=== PATIENT | female | born 1995 | race Caucasian/White ===

== ENCOUNTER 2022-10-04 16:38 | Outpatient (CLI) | payer OTHER, SELFPAY | END 2022-10-04 16:39 | disposition home or self-care (01) | PROVIDERS: Visit Provider Student in an Organized Health Care Education/Training Program | DX: R35.0 Frequency of micturition (principal) | CPT/HCPCS: 87086; 87088 ==

== ENCOUNTER 2022-10-25 11:24 | Observation (INO) | payer OTHER, SELFPAY ==
[2022-10-25 11:42] VITALS: BP 138/97; PULSE 76
[2022-10-25 12:00] VITALS: BP 132/86; PULSE 79
[2022-10-25 12:01] LABS: Appearance Urine Clear (Clear); Bacteria Urine Rare /hpf; Bilirubin Urine Negative (Negative); Color Urine Yellow (Yellow); Glucose Urine UA Negative (Negative); Ketones Urine Negative (Negative); Leukocyte Esterase Ur 1+ LEU/UL (NEGATIVE); Nitrate Urine Negative (Negative); Protein Urine Trace mg/dL (Negative); Specific Grav Ur 1.018 (1.001-1.035); Squamous Epithelial Cell Urine Few /hpf (Few); Urobilinogen Urine 0.2 mg/dL (<2.0); pH Urine 6.5 (5.0-9.0)
[2022-10-25 12:13] LABS: Add Urine Microscopic? YES
[2022-10-25 12:30] VITALS: BP 136/93; PULSE 77
--- NOTE | 2022-10-26 14:45 | PM.OBTRLD ---
OB - Triage/Final Diagnosis Visit Information Date of evaluation: 10/25/22 Reason for evaluation: threatened labor Comments/Additional reasons for admission: I have assessed the risk for this patient, Nicolette Lawrence, and determined that she would benefit from observation care. Evaluation Laboratory results: Laboratory Tests 10/25/22 11:45 Urine Color Yellow Urine Appearance Clear Urine pH 6.5 Ur Specific [place] 1.018 Urine Protein Trace Urine Glucose (UA) Negative Urine Ketones Negative Ur Blood (Man) Non-hemolyzed trace Urine Nitrate Negative Urine Bilirubin Negative Urine Urobilinogen 0.2 Ur Leukocyte Esterase 1+ H Urine RBC 6-10 H Urine WBC 6-10 Ur Squamous Epith Cells Few Urine Bacteria Rare Urine Casts 3-5
== END 2022-10-25 12:42 | disposition home or self-care (01) ==
PROVIDERS: Admitting Provider Obstetrics & Gynecology; Visit Provider Student in an Organized Health Care Education/Training Program
DX: O47.03 False labor before 37 completed weeks of gestation, third trimester (principal); Z3A.33 33 weeks gestation of pregnancy
CPT/HCPCS: 81001; 87086; 87088; G0378; G0379

== ENCOUNTER 2022-10-31 11:39 | Outpatient (CLI) | payer OTHER, SELFPAY ==
[2022-10-31 12:14] LABS: Basophils Percent Auto 0.3 % (0.2-1.2); Eosinophils Absolute Auto 0.1 K/mm3 (0-0.3); Eosinophils Percent Auto 0.4 % (0-4.4); Hematocrit 34.9 % (37.0-47.0); Hemoglobin 11.4 g/dL (12.0-15.0); Immature Granulocyte Absolute 0.08 K/mm3 (0.00-0.031); Immature Granulocyte Percent A 0.6 % (0-0.5); Lymphocytes Absolute Auto 1.93 K/mm3 (0.9-3.2); Lymphocytes Percent Auto 14.1 % (18.3-44.2); Mean Corpuscular HGB Conc 32.7 g/dl (32-36); Mean Corpuscular Hemoglobin 28.6 pg (26-34); Mean Corpuscular Volume 87.7 fl (80-100); Mean Platelet Volume 9.6 fl (7.4-10.4); Monocytes Absolute Auto 0.7 K/mm3 (0.1-0.6); Monocytes Percent Auto 5.4 % (2.6-8.5); Neutrophils Absolute Auto 10.9 K/mm3 (1.3-6.7); Neutrophils Percent Auto 79.2 % (45.5-73.1); Platelet Count Result 373 k/mm3 (150-375); Red Blood Count 3.98 M/mm3 (4.2-5.4); Red Cell Distribution Width 13.2 % (11.5-14.5); White Blood Count 13.7 K/mm3 (4.5-10.0)
[2022-10-31 12:15] VITALS: BP 145/104; PULSE 84
[2022-10-31 12:17] LABS: Appearance Urine Clear (Clear); Bacteria Urine None Seen /hpf; Bilirubin Urine Negative (Negative); Blood Urine Negative (Negative); Color Urine Yellow (Yellow); Glucose Urine UA 1+ mg/dL (Negative); Ketones Urine Negative (Negative); Leukocyte Esterase Ur Trace LEU/UL (NEGATIVE); Nitrate Urine Negative (Negative); Non Pathogenic Casts 0-2; Protein Urine 1+ mg/dL (Negative); RBC Urine 0-2 /hpf (0-2); Specific Grav Ur 1.021 (1.001-1.035); Squamous Epithelial Cell Urine Occasional /hpf (Few); WBC Urine 0-5 /hpf (0-3); pH Urine 6.5 (5.0-9.0)
[2022-10-31 12:22] LABS: Creatinine Urine 138.9 mg/dL; Total Protein Urine Random 32 mg/dL; Ur Ttl Prot Creatinine Ratio 0.23 mg/mg (0-0.20)
[2022-10-31 12:28] LABS: Alanine Aminotransferase 15 U/L (6-35); Albumin Level 3.2 g/dL (3.5-5.1); Alkaline Phosphatase 98 U/L (38-126); Anion Gap 6 mmol/L (8-16); Aspartate Amino Transferase 17 U/L (14-36); Bilirubin,Total 0.3 mg/dL (0.2-1.3); Blood Urea Nitrogen 10 mg/dL (7-17); Calcium 8.4 mg/dL (8.4-10.2); Carbon Dioxide 22 mmol/L (22-30); Chloride 107 mmol/L (98-107); Estimated Glomerular Filt Rate > 60; Glucose 92 mg/dL (65-110); Potassium 3.6 mmol/L (3.4-5.0); Sodium 135 mmol/L (137-145)
[2022-10-31 12:31] VITALS: BP 141/98; PULSE 82
[2022-10-31 12:46] VITALS: BP 138/98; PULSE 83
[2022-10-31 12:58] LABS: Add Urine Microscopic? YES
[2022-10-31 13:01] VITALS: BP 144/92; PULSE 83
[2022-10-31 16:53] VITALS: BP 144/92; PULSE 83
== END 2022-10-31 13:15 | disposition home or self-care (01) ==
LOC: ANHOBOP 11:43 → ANHOBPP 11:47
PROVIDERS: Visit Provider Obstetrics & Gynecology
DX: O13.3 Gestational [pregnancy-induced] hypertension without significant proteinuria, third trimester (principal); Z3A.34 34 weeks gestation of pregnancy
CPT/HCPCS: 36415; 59025; 80053; 81001; 82570; 84156; 84550; 85025; 87086; 87088; 99199

== ENCOUNTER 2022-11-05 11:28 | Outpatient (CLI) | payer OTHER, SELFPAY ==
[2022-11-05 11:28] VITALS: BMI 38.7
[2022-11-05 12:04] LABS: Collection Time Urine 24 HOURS
[2022-11-05 12:08] LABS: Total Volume 24 Hour Urine 1200 ml
[2022-11-05 12:12] LABS: Creatinine Urine 84.1 mg/dL; Patient Weight 240 Lbs
[2022-11-05 12:13] LABS: Creatinine Clearance Urine 80.4 ml/min (75-125); Serum Creat 0.7
[2022-11-05 12:23] LABS: Total Protein Urine Random 24 mg/dL
[2022-11-05 12:37] LABS: Total Protein Urine 24 Hr 288 mg/24hr (28-141); Total Volume 24 Hour Urine 1200 ml
== END 2022-11-05 11:29 | disposition home or self-care (01) ==
LOC: ANHOBOP 11:34
PROVIDERS: Visit Provider Obstetrics & Gynecology
DX: Z34.90 Encounter for supervision of normal pregnancy, unspecified, unspecified trimester (principal); Z3A.00 Weeks of gestation of pregnancy not specified
CPT/HCPCS: 81050; 82575; 84156

== ENCOUNTER 2022-11-10 15:19 | Outpatient (CLI) | payer OTHER, SELFPAY ==
[2022-11-10] VITALS (8 sets, daily range): BP systolic 134–148; BP diastolic 88–100; PULSE 69–77; BMI 37.3
[2022-11-10 16:10] LABS: Basophils Percent Auto 0.3 % (0.2-1.2); Eosinophils Absolute Auto 0.1 K/mm3 (0-0.3); Eosinophils Percent Auto 0.5 % (0-4.4); Hematocrit 32.8 % (37.0-47.0); Hemoglobin 11.1 g/dL (12.0-15.0); Immature Granulocyte Absolute 0.06 K/mm3 (0.00-0.031); Immature Granulocyte Percent A 0.5 % (0-0.5); Lymphocytes Absolute Auto 2.22 K/mm3 (0.9-3.2); Lymphocytes Percent Auto 17.8 % (18.3-44.2); Mean Corpuscular HGB Conc 33.8 g/dl (32-36); Mean Corpuscular Hemoglobin 29.2 pg (26-34); Mean Corpuscular Volume 86.3 fl (80-100); Mean Platelet Volume 9.8 fl (7.4-10.4); Monocytes Absolute Auto 0.8 K/mm3 (0.1-0.6); Monocytes Percent Auto 6.1 % (2.6-8.5); Neutrophils Absolute Auto 9.4 K/mm3 (1.3-6.7); Neutrophils Percent Auto 74.8 % (45.5-73.1); Platelet Count Result 366 k/mm3 (150-375); Red Cell Distribution Width 13.1 % (11.5-14.5); White Blood Count 12.5 K/mm3 (4.5-10.0)
[2022-11-10 16:18] LABS: Alanine Aminotransferase 15 U/L (6-35); Albumin Level 3.4 g/dL (3.5-5.1); Alkaline Phosphatase 117 U/L (38-126); Anion Gap 6 mmol/L (8-16); Appearance Urine Cloudy (Clear); Aspartate Amino Transferase 18 U/L (14-36); Bacteria Urine Rare /hpf; Bilirubin Urine Negative (Negative); Bilirubin,Total 0.3 mg/dL (0.2-1.3); Blood Urea Nitrogen 9 mg/dL (7-17); Blood Urine Negative (Negative); Calcium 8.2 mg/dL (8.4-10.2); Carbon Dioxide 22 mmol/L (22-30); Chloride 105 mmol/L (98-107); Color Urine Yellow (Yellow); Estimated Glomerular Filt Rate > 60; Glucose 81 mg/dL (65-110); Glucose Urine UA Negative (Negative); Ketones Urine Negative (Negative); Leukocyte Esterase Ur Trace LEU/UL (Negative); Nitrate Urine Negative (Negative); Potassium 3.7 mmol/L (3.4-5.0); Protein Urine 1+ mg/dL (Negative); RBC Urine 0-2 /hpf (0-2); Sodium 133 mmol/L (137-145); Specific Grav Ur 1.023 (1.001-1.035); Squamous Epithelial Cell Urine Few /hpf (Few); Uric Acid 3.3 mg/dL (2.5-7.5); Urobilinogen Urine 0.2 mg/dL (<2.0)
[2022-11-10 16:34] LABS: Add Urine Microscopic? YES
[2022-11-10 16:59] LABS: Creatinine Urine 200.6 mg/dL; Total Protein Urine Random 50 mg/dL; Ur Ttl Prot Creatinine Ratio 0.25 mg/mg (0-0.20)
--- NOTE | 2022-11-10 17:07 | PC.NURSE ---
Dr. Venegas informed of lab results, reactive NST, BP's (initial was 148/100, but looks like it was taken before pt sat for 5 mins) and remainder 130-140's / 90's. Pt denies headache, visual disturbance, epigastric/RUQ pain, no edema, and normal reflexes. Pt to continue testing twice a week.
== END 2022-11-10 17:15 | disposition home or self-care (01) ==
LOC: ANHOBOP 15:25 → ANHLDR 15:26
PROVIDERS: Obstetrics & Gynecology; Visit Provider Obstetrics & Gynecology
DX: O13.9 Gestational [pregnancy-induced] hypertension without significant proteinuria, unspecified trimester (principal)
CPT/HCPCS: 36415; 59025; 80053; 81001; 82570; 84156; 84550; 85025; 87086; 87088; 99199

== ENCOUNTER 2022-11-17 09:17 | Outpatient (RCR) | payer OTHER, SELFPAY ==
[2022-11-04 16:40] LABS: Basophils Percent Auto 0.3 % (0.2-1.2); Eosinophils Percent Auto 0.3 % (0-4.4); Hematocrit 34.2 % (37.0-47.0); Hemoglobin 11.5 g/dL (12.0-15.0); Immature Granulocyte Absolute 0.05 K/mm3 (0.00-0.031); Immature Granulocyte Percent A 0.4 % (0-0.5); Lymphocytes Absolute Auto 1.92 K/mm3 (0.9-3.2); Mean Corpuscular HGB Conc 33.6 g/dl (32-36); Mean Corpuscular Hemoglobin 29.4 pg (26-34); Mean Corpuscular Volume 87.5 fl (80-100); Mean Platelet Volume 9.7 fl (7.4-10.4); Monocytes Absolute Auto 0.6 K/mm3 (0.1-0.6); Monocytes Percent Auto 4.6 % (2.6-8.5); Neutrophils Absolute Auto 11.1 K/mm3 (1.3-6.7); Neutrophils Percent Auto 80.4 % (45.5-73.1); Platelet Count Result 363 k/mm3 (150-375); Red Blood Count 3.91 M/mm3 (4.2-5.4); Red Cell Distribution Width 13.2 % (11.5-14.5); White Blood Count 13.7 K/mm3 (4.5-10.0)
[2022-11-04 16:51] LABS: Alanine Aminotransferase 16 U/L (6-35); Albumin Level 3.4 g/dL (3.5-5.1); Alkaline Phosphatase 107 U/L (38-126); Anion Gap 6 mmol/L (8-16); Aspartate Amino Transferase 18 U/L (14-36); Bilirubin,Total 0.4 mg/dL (0.2-1.3); Blood Urea Nitrogen 10 mg/dL (7-17); Calcium 8.3 mg/dL (8.4-10.2); Carbon Dioxide 24 mmol/L (22-30); Chloride 105 mmol/L (98-107); Estimated Glomerular Filt Rate > 60; Glucose 113 mg/dL (65-110); Potassium 3.7 mmol/L (3.4-5.0); Sodium 135 mmol/L (137-145); Uric Acid 3.6 mg/dL (2.5-7.5)
[2022-11-04 17:16] VITALS: BP 135/85; PULSE 75
[2022-11-06 13:30] VITALS: BP 136/89; PULSE 74
[2022-11-14 14:32] LABS: Basophils Percent Auto 0.2 % (0.2-1.2); Eosinophils Absolute Auto 0.1 K/mm3 (0-0.3); Eosinophils Percent Auto 0.3 % (0-4.4); Hematocrit 34.9 % (37.0-47.0); Hemoglobin 11.6 g/dL (12.0-15.0); Immature Granulocyte Absolute 0.07 K/mm3 (0.00-0.031); Immature Granulocyte Percent A 0.5 % (0-0.5); Lymphocytes Absolute Auto 1.88 K/mm3 (0.9-3.2); Lymphocytes Percent Auto 12.7 % (18.3-44.2); Mean Corpuscular HGB Conc 33.2 g/dl (32-36); Mean Corpuscular Volume 87.3 fl (80-100); Mean Platelet Volume 9.9 fl (7.4-10.4); Monocytes Absolute Auto 0.8 K/mm3 (0.1-0.6); Monocytes Percent Auto 5.6 % (2.6-8.5); Neutrophils Percent Auto 80.7 % (45.5-73.1); Platelet Count Result 376 k/mm3 (150-375); Red Cell Distribution Width 13.1 % (11.5-14.5); White Blood Count 14.9 K/mm3 (4.5-10.0)
[2022-11-14 14:36] LABS: Appearance Urine Cloudy (Clear); Bacteria Urine None Seen /hpf; Bilirubin Urine Negative (Negative); Blood Urine Negative (Negative); Color Urine Yellow (Yellow); Glucose Urine UA Negative (Negative); Ketones Urine Negative (Negative); Leukocyte Esterase Ur 1+ LEU/UL (Negative); Nitrate Urine Negative (Negative); Protein Urine 1+ mg/dL (Negative); RBC Urine 0-2 /hpf (0-2); Specific Grav Ur 1.018 (1.001-1.035); Squamous Epithelial Cell Urine Moderate /hpf (Few); pH Urine 6.5 (5.0-9.0)
[2022-11-14 14:44] LABS: Alanine Aminotransferase 15 U/L (6-35); Albumin Level 3.2 g/dL (3.5-5.1); Alkaline Phosphatase 116 U/L (38-126); Anion Gap 4 mmol/L (8-16); Aspartate Amino Transferase 21 U/L (14-36); Bilirubin,Total 0.3 mg/dL (0.2-1.3); Blood Urea Nitrogen 8 mg/dL (7-17); Calcium 8.5 mg/dL (8.4-10.2); Carbon Dioxide 24 mmol/L (22-30); Chloride 107 mmol/L (98-107); Estimated Glomerular Filt Rate > 60; Glucose 90 mg/dL (65-110); Potassium 3.5 mmol/L (3.4-5.0); Sodium 135 mmol/L (137-145); Uric Acid 3.5 mg/dL (2.5-7.5)
[2022-11-14 14:46] LABS: Creatinine Urine 205.2 mg/dL; Total Protein Urine Random 43 mg/dL; Ur Ttl Prot Creatinine Ratio 0.21 mg/mg (0-0.20)
[2022-11-14 14:48] LABS: Add Urine Microscopic? YES
[2022-11-14 15:00] VITALS: BP 137/91; PULSE 78
--- NOTE | ~2022-11-17 | US_ITS ---
EXAMINATION: US OB BPP wo non-stress DATE: 11/17/2022 11:02 INDICATION: Hypertension. Third trimester. TECHNIQUE: Real-time pelvic ultrasound was performed. COMPARISON: Ultrasound 11/06/2022 FINDINGS: There is a single living fetus in vertex presentation. The placenta is on the left. heart rate is 132 beats per minute (bpm). Biophysical profile performed by the technologist: breathing (30 sec sustained breathing in 30 minutes): 2 out of 2 movement (3 gross body movements in 30 minutes): 2 out of 2 tone (one episode of qfjudmy-tompqceji-jndxwgp limb movement): 2 out of 2 Amniotic fluid pocket (2 cm): 2 out of 2 Total score: 8 out of 8 IMPRESSION: 1. Single living fetus in vertex presentation. 2. Biophysical profile 8 out of 8. Reviewed, dictated and finalized at location A.
--- NOTE | ~2022-11-17 | US_ITS ---
EXAMINATION: US OB BPP wo non-stress DATE: 11/06/2022 13:27 INDICATION: Gestational hypertension. Third trimester. TECHNIQUE: Real-time pelvic ultrasound was performed. COMPARISON: Ultrasound 10/30/2022 FINDINGS: There is a single living fetus in vertex presentation. The placenta is on the left. heart rate is 121 beats per minute (bpm). Biophysical profile performed by the technologist: breathing (30 sec sustained breathing in 30 minutes): 2 out of 2 movement (3 gross body movements in 30 minutes): 2 out of 2 tone (one episode of sdmvevd-mfmhiqlhm-rziowmx limb movement): 2 out of 2 Amniotic fluid pocket (2 cm): 2 out of 2 Total score: 8 out of 8 IMPRESSION: 1. Single living fetus in vertex presentation. 2. Biophysical profile 8 out of 8. Reviewed, dictated and finalized at location A.
[2022-11-17 10:41] LABS: Basophils Percent Auto 0.2 % (0.2-1.2); Eosinophils Percent Auto 0.3 % (0-4.4); Hematocrit 36.2 % (37.0-47.0); Immature Granulocyte Absolute 0.06 K/mm3 (0.00-0.031); Immature Granulocyte Percent A 0.5 % (0-0.5); Lymphocytes Absolute Auto 1.68 K/mm3 (0.9-3.2); Lymphocytes Percent Auto 13.5 % (18.3-44.2); Mean Corpuscular HGB Conc 33.1 g/dl (32-36); Mean Corpuscular Hemoglobin 29.3 pg (26-34); Mean Corpuscular Volume 88.3 fl (80-100); Mean Platelet Volume 9.8 fl (7.4-10.4); Monocytes Absolute Auto 0.5 K/mm3 (0.1-0.6); Neutrophils Absolute Auto 10.2 K/mm3 (1.3-6.7); Neutrophils Percent Auto 81.5 % (45.5-73.1); Platelet Count Result 364 k/mm3 (150-375); Red Cell Distribution Width 13.3 % (11.5-14.5); White Blood Count 12.5 K/mm3 (4.5-10.0)
[2022-11-17 10:50] LABS: Creatinine Urine 178.8 mg/dL; Total Protein Urine Random 27 mg/dL; Ur Ttl Prot Creatinine Ratio 0.15 mg/mg (0-0.20)
[2022-11-17 10:52] LABS: Appearance Urine Clear (Clear); Bacteria Urine None Seen /hpf; Bilirubin Urine Negative (Negative); Blood Urine Negative (Negative); Color Urine Yellow (Yellow); Glucose Urine UA Trace mg/dL (Negative); Ketones Urine Negative (Negative); Leukocyte Esterase Ur Trace LEU/UL (NEGATIVE); Nitrate Urine Negative (Negative); Non Pathogenic Casts 0-2; Protein Urine 1+ mg/dL (Negative); RBC Urine 0-2 /hpf (0-2); Specific Grav Ur 1.019 (1.001-1.035); Squamous Epithelial Cell Urine Few /hpf (Few); WBC Urine 0-5 /hpf (0-3); pH Urine 6.5 (5.0-9.0)
[2022-11-17 11:11] LABS: Alanine Aminotransferase 18 U/L (6-35); Albumin Level 3.2 g/dL (3.5-5.1); Alkaline Phosphatase 122 U/L (38-126); Anion Gap 6 mmol/L (8-16); Aspartate Amino Transferase 19 U/L (14-36); Bilirubin,Total 0.3 mg/dL (0.2-1.3); Blood Urea Nitrogen 9 mg/dL (7-17); Calcium 8.1 mg/dL (8.4-10.2); Carbon Dioxide 21 mmol/L (22-30); Chloride 108 mmol/L (98-107); Estimated Glomerular Filt Rate > 60; Glucose 118 mg/dL (65-110); Potassium 3.8 mmol/L (3.4-5.0); Sodium 135 mmol/L (137-145); Uric Acid 3.7 mg/dL (2.5-7.5)
[2022-11-17 11:31] LABS: Add Urine Microscopic? YES
[2022-11-17 11:40] VITALS: BP 148/108; PULSE 112
== END 2023-01-29 12:51 | disposition home or self-care (01) ==
LOC: ANHOBOP 09:17
PROVIDERS: Visit Provider Obstetrics & Gynecology
DX: O26.893 Other specified pregnancy related conditions, third trimester (principal); R03.0 Elevated blood-pressure reading, without diagnosis of hypertension; Z3A.34 34 weeks gestation of pregnancy; Z3A.36 36 weeks gestation of pregnancy
CPT/HCPCS: 36415; 59025; 76819; 80053; 81001; 81050; 82570; 82575; 84156; 84550; 85025; 87086; 87088

== ENCOUNTER 2022-11-19 15:45 | Inpatient (IN) | payer OTHER, SELFPAY ==
[2022-11-19] VITALS (27 sets, daily range): BP systolic 137–155; BP diastolic 83–110; PULSE 72–88; TEMP 36.3–36.8; BMI 37.3
--- NOTE | 2022-11-19 16:24 | LDADM ---
This patient, Nicolette Castillo, was admitted to Labor/Delivery/Recovery 104 on 11/19/22 at 15:45. Plans for labor, pain management and were discussed with patient. Patient/family oriented to hospital policies and general routines including ID bracelet, bed and alarms, visiting hours, pain management, procedures, bathroom and other care routines, personal items, smoking policy, room service/diet and guest tray routines, security routines, and visiting hours. Patient/Family are encouraged to report perceived risks to care and to ask questions if they do not understand what they are told or what they should do. See OBIX for further documentation.
--- NOTE | 2022-11-19 16:48 | PM.IMHP ---
H&P: HPI History of Present Illness Date/Time: 11/19/22 16:48 Chief Complaint: induction of labor Narrative: Nicolette is a 27yo @ 36.5wks who presents for IOL. She has been monitored closely due to GHTN and has continued to have worsening blood pressures and began noticing changes in her vision and headaches. She had pre-eclampsia with her first as well and has been taking aspirin. She reports good movement. Irregular ctx. NO VB or LOF. She has had regular care. She no longer desires future fertility and [place] signed [place] forms on 10/16/22. She is GBS positive. Review of Systems Constitutional: Constitutional: Denies chills, Denies fever(s) and Reports headache(s) Eyes: Eyes: Reports change in vision Cardiovascular: Cardiovascular: Denies chest pain Respiratory: Respiratory: Denies cough and Denies dyspnea Gastrointestinal: Gastrointestinal: Denies nausea and Denies vomiting Genitourinary: Genitourinary: Denies abnormal vaginal bleeding [facility] Past Medical History Medical History Amenorrhea Blood glucose abnormal Gestational hypertension Suppression of menses Surgical History Surgical History History of appendectomy (06/26/13) Family History Family History Mother Kidney disease Grandparent Leukemia paternal grandmother Social History Social History Smoking status: Never smoker Alcohol intake: former Alcohol use details: socially Substance use: never Substance use type: does not use Lack of Transportation: No Lack of Food: Never True Current Housing: I Have Housing Concerned About Future Housing: No Difficulty Paying Gas/Electric Bills: No Difficulty Paying for Meds: No Currently Unemployed: No Education: Don't Know Difficulty w/ Childcare or Family Care: No Living arrangements: other Additional living arrangements comments: Occupation/Education: occupation 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 Gender identity (if verbalized by the patient): Female Sexual Orientation (if Verbalized by the Patient): Straight or Heterosexual Spiritual care concerns: No Meds Home Medications and Allergies Home Medications Medication Instructions Recorded Confirmed Type aspirin 81 mg tablet,delayed 81 mg PO DAILY 09/04/22 11/14/22 History release (Adult Low Dose Aspirin) ondansetron HCl 4 mg tablet 4 mg PO Q6H PRN nausea and 10/30/22 11/14/22 Rx vomiting #30 tabs sertraline 50 mg tablet 50 mg PO DAILY #30 tabs 10/30/22 11/14/22 Rx Allergies Allergy/AdvReac Type Severity Reaction Status Date / Time No Known Allergies Allergy Verified 11/14/22 15:50 Vital Signs Vital Signs - 24 hr 11/19/22 16:08 11/19/22 16:16 11/19/22 16:31 Pulse Rate 79 84 82 Blood Pressure 139/91 H 137/87 140/92 H Oxygen Delivery 11/19/22 16:22 Pulse Rate Blood Pressure Oxygen Delivery Room Air Exam Const: General: cooperative, comfortable, no acute distress and obese Resp: Effort & Inspection: normal respiratory effort Cardio: Rate: regular rate GI: GI Palp: No abdominal tenderness : Other: FHT's: 130's/ mod macey/ + accels/ no decels- cat 1 TOCO: irregular ctx's Cervix: 2/75/-2 Membranes: intact Presentation: cephalic Skin: General skin exam: normal color Neuro: General: patient oriented x3 Extrem: General: normal to inspection Psych: Appearance: grossly normal Affect: normal affect Attitude: cooperative Assessment and Plan Assessment and plan (1) Encounter for induction of labor: Code(s): Z34.90 - Encounter for supervision of normal , unspecified, unspecified trimester Status: Acute (2) Pre-eclampsia: Thomas
--- NOTE | 2022-11-19 17:08 | WPDHPUPDATE1 ---
History and Physical Update Update Date/Time: 11/19/22 17:08 History and Physical has been reviewed, including an updated exam of the patient. There are NO changes in the patient's condition. Risks, benefits, and alternatives have been discussed and questions answered. Patient agrees to proceed with procedure.
[2022-11-19 17:14] LABS: Basophils Percent Auto 0.3 % (0.2-1.2); Eosinophils Percent Auto 0.3 % (0-4.4); Hematocrit 37.5 % (37.0-47.0); Hemoglobin 12.4 g/dL (12.0-15.0); Immature Granulocyte Absolute 0.06 K/mm3 (0.00-0.031); Immature Granulocyte Percent A 0.4 % (0-0.5); Lymphocytes Absolute Auto 2.23 K/mm3 (0.9-3.2); Lymphocytes Percent Auto 14.6 % (18.3-44.2); Mean Corpuscular HGB Conc 33.1 g/dl (32-36); Mean Corpuscular Hemoglobin 29.3 pg (26-34); Mean Corpuscular Volume 88.7 fl (80-100); Mean Platelet Volume 9.9 fl (7.4-10.4); Monocytes Absolute Auto 0.8 K/mm3 (0.1-0.6); Monocytes Percent Auto 5.3 % (2.6-8.5); Neutrophils Absolute Auto 12.1 K/mm3 (1.3-6.7); Neutrophils Percent Auto 79.1 % (45.5-73.1); Platelet Count Result 375 k/mm3 (150-375); Red Blood Count 4.23 M/mm3 (4.2-5.4); Red Cell Distribution Width 13.3 % (11.5-14.5); White Blood Count 15.3 K/mm3 (4.5-10.0)
[2022-11-19] MEDS: OXYTOCIN 30 UNITS/NS 500 ML 30 UNITS/500 ML BAG IV CONT (17:22)
[2022-11-19] MEDS: BETAMETHASONE SOD PHOS/ACETATE 30 MG/5 ML VIAL 12 MG IM (17:23)
[2022-11-19] MEDS: AMPICILLIN 2 GM/NS 100 ML 2 GM/100 ML BAG IVPB (17:23)
[2022-11-19] MEDS: LACTATED RINGERS 1,000 ML 125 ML IV CONT ×2 (17:23→21:30)
--- NOTE | 2022-11-19 17:33 | PC.NURSE ---
9406: Dr. Bañuelos phoned in for an update. RN reported maternal and status. Orders to start Low dose Pitocin, antibiotics, and to give 2 ml of Betamethasone IM, one dose now and the other in 12 hours.
--- NOTE | 2022-11-19 17:35 | WPDANESEPP ---
Anes - Eval Pre Procedure Procedure: labor epidural Date/Time: 11/19/22 17:35 Pre Op Diagnosis: IOL Patient Data Age: 27 Gender: F Height: 1.7 m Weight: 108 kg Last Vital Signs Temp 36.3 C L 11/19/22 16:31 Pulse 79 11/19/22 17:31 BP 147/98 H 11/19/22 17:31 O2 Del Method Room Air 11/19/22 16:22 Allergies Allergy/AdvReac Type Severity Reaction Status Date / Time No Known Allergies Allergy Verified 11/14/22 15:50 Home Medications Medication Instructions Recorded Confirmed Type aspirin 81 mg tablet,delayed 81 mg PO DAILY 09/04/22 11/14/22 History release (Adult Low Dose Aspirin) ondansetron HCl 4 mg tablet 4 mg PO Q6H PRN nausea and 10/30/22 11/14/22 Rx vomiting #30 tabs sertraline 50 mg tablet 50 mg PO DAILY #30 tabs 10/30/22 11/14/22 Rx Laboratory Tests 11/19/22 16:06 WBC 15.3 H K/mm3 (4.5-10.0) RBC 4.23 M/mm3 (4.2-5.4) Hgb 12.4 g/dL (12.0-15.0) Hct 37.5 % (37.0-47.0) MCV 88.7 fl (80-100) MCH 29.3 pg (26-34) MCHC 33.1 g/dl (32-36) RDW 13.3 % (11.5-14.5) Plt Count 375 k/mm3 (150-375) MPV 9.9 fl (7.4-10.4) Immature Gran % (Auto) 0.4 % (0-0.5) Neut % (Auto) 79.1 H % (45.5-73.1) Lymph % (Auto) 14.6 L % (18.3-44.2) [place] % (Auto) 5.3 % (2.6-8.5) Eos % (Auto) 0.3 % (0-4.4) Baso % (Auto) 0.3 % (0.2-1.2) Lymph # (Auto) 2.23 K/mm3 (0.9-3.2) [place] # (Auto) 0.8 H K/mm3 (0.1-0.6) Eos # (Auto) 0.0 K/mm3 (0-0.3) Baso # (Auto) 0.0 K/mm3 (0.0-0.1) Abs Immat Gran (auto) 0.06 H K/mm3 (0.00-0.031) Absolute Neuts (auto) 12.1 H K/mm3 (1.3-6.7) Absolute Nucleated RBC 0.0 K/mm3 (0.0-0.012) Nucleated RBC % 0.0 % (0.0-0.2) RPR Pending Patient hx anesthesia problems: none Family hx anesthesia problems: none Results Review: All pre-operative results and documents have been reviewed as part of the pre-operative evaluation. [facility] Past Medical History Medical History Amenorrhea Blood glucose abnormal Gestational hypertension Suppression of menses Surgical History Surgical History History of appendectomy (06/26/13) Family History Family History Mother Kidney disease Grandparent Leukemia paternal grandmother Social History Social History Smoking status: Never smoker Alcohol intake: former Alcohol use details: socially Substance use: never Substance use type: does not use Lack of Transportation: No Lack of Food: Never True Current Housing: I Have Housing Concerned About Future Housing: No Difficulty Paying Gas/Electric Bills: No Difficulty Paying for Meds: No Currently Unemployed: No Education: Don't Know Difficulty w/ Childcare or Family Care: No Living arrangements: other Additional living arrangements comments: Occupation/Education: occupation Additional occupation/education comments: clerk cashier Gender identity (if verbalized by the patient): Female Sexual Orientation (if Verbalized by the Patient): Straight or Heterosexual Spiritual care concerns: No Exam Day of Procedure 11/19/22 17:35 Patient weight: obese Heart: regular rate and rhythm Lungs: clear to auscultation Airway: Mallampati scale Neurological: alert and oriented
[2022-11-19] MEDS: AMPICILLIN 1 GM/NS 50 ML 1 GM/50 ML BAG IVPB (21:31)
[2022-11-20] VITALS (233 sets, daily range): BP systolic 112–168; BP diastolic 71–116; PULSE 70–153; RESP 16–18; TEMP 36.2–36.8; O2SAT 88–100
[2022-11-20] MEDS: AMPICILLIN 1 GM/NS 50 ML 1 GM/50 ML BAG IVPB ×3 (01:28→09:21)
[2022-11-20] MEDS: BETAMETHASONE SOD PHOS/ACETATE 30 MG/5 ML VIAL 12 MG IM (05:14)
--- NOTE | 2022-11-20 07:14 | PM.OBPNLAB ---
Pain Control Date/time seen: 11/20/22 07:14 Pain control: epidural Pelvic Exam Dilation (cm): 4 Effacement (%): 75 station: -2 Amniotic membrane status: Ruptured (AROM, clear 0715) Contractions Monitor mode: Internal Contraction frequency: 2 Status status: Category l Assessment and Plan Pitocin rate (mU/min): 18 Plan: continuous present management Comments: - Continue pitocin augmentation - GBS positive; on ampicillin - IUPC placed this exam to better monitor contractions - BPs in moderate range; asympatomatic
[2022-11-20] MEDS: LACTATED RINGERS 1,000 ML 125 ML IV CONT (07:38)
[2022-11-20] MEDS: SODIUM CHLORIDE 0.9% IV 300 ML 600 ML I-UTERINE (09:30)
[2022-11-20] MEDS: ONDANSETRON INJ 4 MG/2 ML VIAL IV PUSH (10:08)
--- NOTE | 2022-11-20 11:48 | P.PCNOB_ITS ---
OB - Delivery Note Procedure Delivery date: 11/20/22 Events: Preeclampsia w/o severe features Induction method: Per Pitocin Protocol Delivery augmentation: Rupture of Membranes Delivery monitor: External FHT and Internal Uterine Route of delivery: Laceration Description: None Specimen: Yes (placenta) Quantitative Blood Loss (ml): 200 Anesthesia type: Epidural Disposition: Floor Baby Date of : 11/20/22 Time of : 11:33 Weeks of gestation at delivery: 36 (.6) gender: Male Weight (pounds): 6 Weight (ounces): 2 presentation: vertex position: Left Occiput Anterior Placenta delivery description: Expressed Cord Vessel Description: 3 Vessels and Delayed Cord Clamping score one minute: 8 score five minutes: 9 Narrative: Nicolette rapidly progressed to complete dilation. She pushed once and delivered the head over intact perineum. No nuchal cord was palpated. The shoulders and body were easily delivered without complications. The infant was immediately placed skin to skin and had spontaneous cry. Delayed cord clamping was performed. The umbilical cord was doubly clamped and cut. A segment cord was collected for gas. The remaining cord blood was collected for typing. With Pitocin running and gentle downward traction on the cord, the andrew enta delivered without complications. Bimanual massage revealed good tone with minimal bleeding. She was examined and no lacerations were noted. Sponge, lap, instrument, and needle counts were correct at the end of the procedure. Mom and baby were left bonding in the birthing suite in stable condition. [facility] Delivery Billing Delivery Delivery: Delivery Charge
[2022-11-20] MEDS: OXYTOCIN 30 UNITS/NS 500 ML 30 UNITS/500 ML BAG 125 UNITS IV CONT (11:52)
[2022-11-20 13:15] LABS: Rapid Plasma Reagin Non-Reactive (NonReactive)
[2022-11-20] MEDS: BENZOCAINE 20% AER SPR (*SP) 56 GM CAN 1 SPRAY TOPICAL (13:42)
[2022-11-20] MEDS: WITCH HAZEL 40 PADS 1 PAD TOPICAL (13:42)
--- NOTE | 2022-11-20 14:18 | OBPPTRN ---
Patient transferred to post room # 284 via wheelchair. Support person present. Oriented to unit, room, information board, rooming in, admission packet and security measures. Patient verbalizes understanding.
[2022-11-21 02:00] VITALS: BP 146/97; PULSE 67; RESP 16; TEMP 36.4
[2022-11-21] MEDS: IBUPROFEN 600 MG TABLET PO ×3 (02:00→21:21)
[2022-11-21 06:20] LABS: Hematocrit 36.2 % (37.0-47.0); Hemoglobin 11.7 g/dL (12.0-15.0)
--- NOTE | 2022-11-21 07:18 | PM.OBPNVD ---
OB - PN: Subj Subjective Date/time seen: 11/21/22 07:18 Narrative: PPD#1 Nicolette reports doing well today. Her bleeding is transformation lead. Her pain is controlled. She is tolerating regular diet, voiding, passing gas, and ambulating without issues. She is bottle feeding. She would like her son circumcised. No symptoms of PEC but her BP has been elevated all night. OB - PN: Obj Data Labs 11/21/22 02:04 Labs: Laboratory Results - last 24 hr 11/19/22 11/21/22 16:06 02:04 Hgb 11.7 L Hct 36.2 L RPR Non-reactive OB - PN A/P Assessment and Plan (1) Normal vaginal delivery of second : Code(s): O80 - Encounter for full-term uncomplicated delivery Status: Acute (2) Pre-eclampsia: Qualifiers: Trimester: third trimester Qualified Code(s): O14.93 - Unspecified pre-eclampsia, third trimester Code(s): O14.90 - Unspecified pre-eclampsia, unspecified trimester Status: Acute Plan day: 1 Plan: routine care Comments: - will start labetalol 100mg BID; possible d/c home tomorrow if BPs improved Time Spent With Patient Time: Total time spent is greater than 50% in coordination of care (as documented) at patient's floor/unit and/or counseling patient: Review of Systems Constitutional: Constitutional: Denies chills, Denies fever(s) and Denies headache(s) Eyes: Eyes: Denies change in vision ENT: Denies dizziness and Denies headache(s) Cardiovascular: Cardiovascular: Denies chest pain, Denies palpitations and Denies dyspnea Respiratory: Respiratory: Denies cough and Denies dyspnea Gastrointestinal: Gastrointestinal: Denies nausea and Denies vomiting Neurologic: Denies dizziness and Denies headache(s) Endocrine: Endocrine: Denies palpitations Exam Const: General: cooperative, comfortable, no acute distress and obese Orientation/consciousness: patient oriented x3 Resp: Effort & Inspection: normal respiratory effort Auscultation: clear to auscultation bilaterally Cardio: Rate: regular rate GI: Inspection: non-distended GI Palp: No abdominal tenderness and Yes Soft to palpation Auscultation: normal bowel sounds : Other: fundus firm Skin: General skin exam: normal color Neuro: General: patient oriented x3 Extrem: General: normal to inspection Psych: Appearance: grossly normal Affect: normal affect Attitude: cooperative
[2022-11-21 07:25] VITALS: BP 137/99; PULSE 71; RESP 18; TEMP 36.5; O2SAT 98
--- NOTE | 2022-11-21 08:00 | WPDANLDPN2 ---
Anes-Prog Note L&D Date/Time: 11/21/22 08:00 Neuro status: Neuro function grossly intact. Vital Signs: Last Vital Signs Temp 36.4 C 11/21/22 02:00 Pulse 67 11/21/22 02:00 Resp 16 11/21/22 02:00 BP 146/97 H 11/21/22 02:00 Pulse Ox 99 11/20/22 13:41 O2 Del Method Room Air 11/19/22 16:22 Pain score (VAS): 0 I/O: Intake & Output 11/20/22 11/21/22 11/21/22 23:59 07:59 15:59 Intake Total 500 Balance 500 Patient feedback: Patient satisfied with anesthetic care.
[2022-11-21 09:13] VITALS: PULSE 68
[2022-11-21] MEDS: SERTRALINE HCL 50 MG TABLET PO (09:13)
[2022-11-21] MEDS: LABETALOL HCL 100 MG TABLET PO ×2 (09:13→21:17)
[2022-11-21] MEDS: TETANUS,DIPHTHERIA,AC PERTUSSIS ADULT (0.5 ML) BOOSTRIX IM (09:14)
[2022-11-21 12:58] VITALS: BP 128/83; PULSE 65; RESP 16; TEMP 37.3; O2SAT 99
[2022-11-21 19:10] VITALS: BP 130/86; PULSE 73; RESP 16; TEMP 36.8
[2022-11-22 04:50] VITALS: BP 130/93; PULSE 75; RESP 16; TEMP 36.7
--- NOTE | 2022-11-22 07:18 | PM.OBDSVD ---
DS: Admitting Diagnosis Discharge Date 11/22/22 Admitting Diagnosis pre-eclampsia induction of labor DS: Discharge Diagnosis Discharge Diagnosis (1) Normal vaginal delivery of second : Code(s): O80 - Encounter for full-term uncomplicated delivery Status: Acute (2) Pre-eclampsia: Qualifiers: Trimester: third trimester Qualified Code(s): O14.93 - Unspecified pre-eclampsia, third trimester Code(s): O14.90 - Unspecified pre-eclampsia, unspecified trimester Status: Acute OB - DS: Summary OB Procedures : NST, PIH Mgmt and Ultrasound OB Procedures Intrapartum: Spontaneous Vag Delivery OB Procedures: : None Peripartum Data Infant Delivery Method: Natural Vaginal Laceration Description: None complications: none 1: Gender: Male Disposition of : home Status at Discharge Functional status at discharge: independent ambulation Overall status at discharge: patient is back to baseline Time Spent with Patient Time attestation: Total time spent providing and/or coordinating discharge services: Time spent: Less than 30 minutes Exam Const: General: cooperative, comfortable, no acute distress and obese Orientation/consciousness: patient oriented x3 Resp: Effort & Inspection: normal respiratory effort Auscultation: clear to auscultation bilaterally Cardio: Rate: regular rate GI: Inspection: non-distended GI Palp: No abdominal tenderness and Yes Soft to palpation Auscultation: normal bowel sounds : Other: fundus firm Skin: General skin exam: normal color Neuro: General: patient oriented x3 Extrem: General: normal to inspection Psych: Appearance: grossly normal Affect: normal affect Attitude: cooperative DS: Data Data Completed and Pending Pending studies at discharge: Pending at discharge 11/20/22 12:23 Surgical [PTH] Routine Discharge Plan Discharge Attending physician on discharge: Katie Bañuelos Discharging Clinician: Katie Bañuelos Anticipated Discharge Date/Time: 11/22/22 15:00 Patient Disposition: Home, Self-Care Activity: may shower and pelvic rest Diet: regular Patient Instructions: Antibiotic Form Stand Alone Forms: General Discharge Information Follow-up/Referrals: Katie Bañuelos MD [Physician] - 1 Week (1 week for BP check 4 weeks for visit) Discharge Medications: New acetaminophen [Mapap (acetaminophen)] 325 mg Tablet 650 mg PO Q6H PRN (Reason: Mild Pain (1-3) Or Headache) Qty: 60 0RF polysaccharide iron complex 150 mg iron Capsule 150 mg PO DAILY Qty: 60 0RF docusate sodium 100 mg Capsule 100 mg PO BID PRN (Reason: Constipation) Qty: 60 0RF ibuprofen 600 mg Tablet 600 mg PO Q6H PRN (Reason: Cramping) Qty: 40 0RF labetalol 100 mg Tablet 100 mg PO Q12HR Qty: 90 0RF Continued sertraline 50 mg tablet 50 mg PO DAILY Qty: 30 0RF Discontinued aspirin [Adult Low Dose Aspirin] 81 mg tablet,delayed release (DR/EC) 81 mg PO DAILY ondansetron HCl 4 mg tablet 4 mg PO Q6H PRN (Reason: nausea and vomiting) Qty: 30 1RF Date of admission: 11/19/22 15:45 Primary Care Provider: PHYSICIAN,LAW PROFESSOR Admitting Provider: Katie Bañuelos Attending physician on admission: Katie Bañuelos Condition: Stable
[2022-11-22 08:10] VITALS: BP 142/94; PULSE 63; RESP 16; TEMP 37; O2SAT 100
[2022-11-22 08:43] VITALS: PULSE 72
[2022-11-22] MEDS: LABETALOL HCL 100 MG TABLET PO (08:43)
[2022-11-22] MEDS: IBUPROFEN 600 MG TABLET PO (08:43)
[2022-11-22] MEDS: SERTRALINE HCL 50 MG TABLET PO (08:43)
== END 2022-11-22 10:50 | disposition home or self-care (01) | DRG 560 ==
LOC: ANHLDR 15:54 → ANHOB2 11-20 14:20
PROVIDERS: Admitting Provider Obstetrics & Gynecology; Visit Provider Obstetrics & Gynecology
DX: O14.04 Mild to moderate pre-eclampsia, complicating childbirth (principal); O13.4 Gestational [pregnancy-induced] hypertension without significant proteinuria, complicating childbirth; O99.824 Streptococcus B carrier state complicating childbirth; Z3A.36 36 weeks gestation of pregnancy; Z37.0 Single live birth; Z90.49 Acquired absence of other specified parts of digestive tract
CPT/HCPCS: 36415; 85014; 85018; 85025; 86592; 86850; 86900; 86901; 88307; 90715; A9270; J0290; J0702; J2405; J2590; J2795; J7030; J7120

== ENCOUNTER 2023-01-18 11:49 | Outpatient (CLI) | payer OTHER, SELFPAY ==
--- NOTE | 2023-01-18 11:57 | ECG_ITS ---
Measurements Intervals [place] Rate: 69 P: 37 [place]: 156 QRS: 20 QRSD: 103 T: 15 QT: 390 QTc: 418 Interpretive Statements SINUS RHYTHM WITH SINUS ARRHYTHMIA NORMAL ELECTROCARDIOGRAM NO PREVIOUS ECG AVAILABLE FOR COMPARISON Electronically Signed On 01-19-2023 12:46:26 CDT by Ghassan Zazueta M.D.
== END 2023-01-18 11:50 | disposition home or self-care (01) ==
LOC: ANHCARD 11:52
PROVIDERS: Visit Provider Anesthesiology
DX: I10 Essential (primary) hypertension (principal); I49.9 Cardiac arrhythmia, unspecified
CPT/HCPCS: 93005

== ENCOUNTER 2023-01-22 00:50 | Day surgery (SDC) | payer OTHER, SELFPAY ==
[2023-01-11 13:47] VITALS: BMI 35.0
--- NOTE | 2023-01-11 14:04 | SUR.PREOP ---
Report to the Outpatient Waiting Room, entrance under the green pavilion located off [facility], at time 0900 on date 01/22/23. Planned Procedure Time: 1100. Time changes happen often and if your time is changed the preop area will call you the afternoon before. - You and your visitor will be asked to self-screen and do not enter if you have any COVID symptoms. - A mask is optional within the hospital at this time. Patients may have clear liquids (water, carbonated beverages, clear teas, apple juice) until 3 hours prior to surgery with a maximum of 20 ounces. - No food from midnight until time of surgery - Infants may have breast milk until 4 hours before surgery, infant formula 6 hours prior to surgery. - Children will be allowed to drink immediately following surgery. If applicable, please bring a bottle or sippy cup to assist with drinking. Juice, water, soda, and popsicles are readily available. For infants on formula, please bring formula the day of surgery. Pacifiers are allowed. Take the following medications with a SIP of water the morning of surgery: NIFEDIPINE AND SERTRALINE DO NOT STOP ANY OF YOUR OTHER PRESCRIPTION MEDICATIONS PRIOR TO SURGERY ?EXCEPT THE FOLLOWING Medications to discontinue per physician PATIENT TO MACIEL ISAAC ABOUT IBUPROFEN Date to take last dose Please no make-up, nail [place] citizen, hairspray, perfume, deodorant, or body powder the day of surgery. No jewelry (including any body piercings) or valuables the day of surgery, leave them at home. Please take a shower or bath the night before, or the morning of, surgery with an antibacterial soap. Wear comfortable, loose fitting clothing. Children are encouraged to wear pajamas. - Jewelry must be removed prior to entering the operating room. Rings and piercings that are not removed may be cut off. - The hospital will not accept responsibility for valuables. - Please leave all valuables, including medications, at home the day of surgery. If you are going home after surgery, a licensed form setter/driver must drive you home. - NO public transportation without another adult if you receive anesthesia. - We recommend that an adult stay with you for 24 hours following discharge. - We also recommend that you do not drive, make important decision, drink alcoholic beverages, or take any drugs that were not prescribed by your health care provider for at least 24 hours after your discharge time. For Pediatric surgeries, we recommend two adults accompany the child home. Follow any additional instructions given to you from your surgeon. If you or anyone in your household have experienced Covid symptoms in the past week, please notify your surgeon or the nurse liaison at the phone number below for possible testing. Telephone instructions given to ABBY WALLS and asked if any additional questions and then verbalized understanding. Patient advised to call surgeon office or pre surgery nurse liaison [phone] if any additional questions.
--- NOTE | 2023-01-21 17:36 | PM.IMHP ---
H&P: HPI History of Present Illness Date/Time: 01/21/23 17:36 Chief Complaint: sterilization requested Narrative: Nicolette is a 27yo P2002 who presented for her visit and desires to proceed with permanent sterilization. She is s/p due to PEC. No symptoms of pec. She is no longer bleeding. No pelvic pain. Normal bowel/bladder function. No breast issues; bottle feeding. Her mood is doing well; EPDS 2/30. Wants to proceed with permanent sterilization. Review of Systems Constitutional: Constitutional: Denies chills, Denies fever(s) and Denies headache(s) Eyes: Eyes: Denies change in vision ENT: Denies dizziness and Denies headache(s) Cardiovascular: Cardiovascular: Denies chest pain and Denies dyspnea Respiratory: Respiratory: Denies cough and Denies dyspnea Gastrointestinal: Gastrointestinal: Denies abdominal pain and Denies change in stool character Genitourinary: Genitourinary: Denies abnormal menses, Denies pelvic pain, Denies vaginal discharge, Denies vaginal odor and Denies vaginal pruritus Neurologic: Denies dizziness and Denies headache(s) Psychiatric: Psychiatric: Denies anxiety and Denies depression [facility] Past Medical History Medical History Amenorrhea Blood glucose abnormal Gestational hypertension Suppression of menses Surgical History Surgical History History of appendectomy (06/26/13) Family History Family History Mother Kidney disease Grandparent Leukemia paternal grandmother Social History Social History Smoking status: Never smoker Alcohol intake: former Alcohol use details: socially Substance use: never Substance use type: does not use Lack of Transportation: No Lack of Food: Never True Current Housing: I Have Housing Concerned About Future Housing: No Difficulty Paying Gas/Electric Bills: No Difficulty Paying for Meds: No Currently Unemployed: No Education: Don't Know Difficulty w/ Childcare or Family Care: No Living arrangements: with family Additional living arrangements comments: Occupation/Education: occupation 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 Gender identity (if verbalized by the patient): Female Sexual Orientation (if Verbalized by the Patient): Straight or Heterosexual Spiritual care concerns: No Meds Home Medications and Allergies Home Medications Medication Instructions Recorded Confirmed Type sertraline 50 mg tablet 50 mg PO DAILY #30 tabs 10/30/22 01/11/23 Rx ibuprofen 600 mg tablet 600 mg PO Q6H PRN Cramping #40 tabs 11/21/22 01/11/23 Rx nifedipine 30 mg tablet,extended 30 mg PO DAILY #30 tabs 12/01/22 01/11/23 Rx release Allergies Allergy/AdvReac Type Severity Reaction Status Date / Time No Known Allergies Allergy Verified 01/11/23 14:10 Exam Const: General: cooperative, comfortable, no acute distress and obese Orientation/consciousness: patient oriented x3 Resp: Effort & Inspection: normal respiratory effort Cardio: Rate: regular rate GI: Inspection: normal to inspection GI Palp: No abdominal tenderness and Yes Soft to palpation : Other: deferred to OR Skin: General skin exam: normal color Neuro: General: patient oriented x3 Extrem: General: normal to inspection Psych: Appearance: grossly normal Affect: normal affect Attitude: cooperative Assessment and Plan Assessment and plan (1) Encounter for sterilization: Code(s): Z30.2 - Encounter for sterilization Status: Acute Assessment and Plan: - ok to proceed with laparoscopic bilateral salpingectomy - Risks and benefits explained in detail including the risk of regret before 30yo - signed [place] forms on 10/16/22
[2023-01-22] VITALS (8 sets, daily range): BP systolic 125–146; BP diastolic 81–97; PULSE 50–76; RESP 12–16; TEMP 36.3–36.4; O2SAT 97–100; BMI 35.4
--- NOTE | 2023-01-22 07:17 | WPDHPUPDATE1 ---
History and Physical Update Update Date/Time: 01/22/23 07:17 History and Physical has been reviewed, including an updated exam of the patient. There are NO changes in the patient's condition. Risks, benefits, and alternatives have been discussed and questions answered. Patient agrees to proceed with laparoscopic bilateral salpingectomy..
[2023-01-22] MEDS: LACTATED RINGERS 1,000 ML 30 ML IV CONT ×2 (08:20→10:24)
[2023-01-22] MEDS: KETOROLAC 15 MG/ML VIAL (*BKC) IV PUSH (08:24)
[2023-01-22] MEDS: ACETAMINOPHEN 500 MG TABLET 1000 MG PO (08:24)
--- NOTE | 2023-01-22 09:14 | WPDANESEPPF ---
Anes - Initial Pre Proc Eval Procedure: Operation Date: 01/22/23 10:00 Proposed Procedures p Laparoscopic Bilateral Salpingectomy - Katie Bañuelos MD Date/Time: 01/22/23 09:14 Surgeon: Katie Bañuelos MD Pre Op Diagnosis: Desires Sterilization Patient Data Age: 27 Gender: F Height: 1.7 m Weight: 102.8 kg Last Vital Signs Temp 36.3 C L 01/22/23 07:56 Pulse 73 01/22/23 07:56 Resp 16 01/22/23 07:56 BP 131/86 01/22/23 07:56 Pulse Ox 99 01/22/23 07:56 O2 Del Method Room Air 01/22/23 07:56 Allergies Allergy/AdvReac Type Severity Reaction Status Date / Time No Known Allergies Allergy Verified 01/22/23 08:16 Home Medications Medication Instructions Recorded Confirmed Type sertraline 50 mg tablet 50 mg PO DAILY #30 tabs 10/30/22 01/11/23 Rx ibuprofen 600 mg tablet 600 mg PO Q6H PRN Cramping #40 tabs 11/21/22 01/11/23 Rx nifedipine 30 mg tablet,extended 30 mg PO DAILY #30 tabs 12/01/22 01/11/23 Rx release Patient hx anesthesia problems: none Family hx anesthesia problems: none Results Review: All pre-operative results and documents have been reviewed as part of the pre-operative evaluation. [facility] Past Medical History Medical History Amenorrhea Blood glucose abnormal Gestational hypertension Suppression of menses Surgical History Surgical History History of appendectomy (06/26/13) Family History Family History Mother Kidney disease Grandparent Leukemia paternal grandmother Social History Social History Smoking status: Never smoker Alcohol intake: former Alcohol use details: socially Substance use: never Substance use type: does not use Lack of Transportation: No Lack of Food: Never True Current Housing: I Have Housing Concerned About Future Housing: No Difficulty Paying Gas/Electric Bills: No Difficulty Paying for Meds: No Currently Unemployed: No Education: Don't Know Difficulty w/ Childcare or Family Care: No Living arrangements: with family Additional living arrangements comments: Occupation/Education: occupation 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 Gender identity (if verbalized by the patient): Female Sexual Orientation (if Verbalized by the Patient): Straight or Heterosexual Spiritual care concerns: No Anes - Eval Final PreProcedure Day of Procedure 01/22/23 09:14 Patient weight: obese Heart: regular rate and rhythm Lungs: clear to auscultation Airway: Mallampati scale class II Neurological: alert and oriented Last oral intake: >/= 8 hours ASA classification: II Emergent: no Anesthetic plan: proceed Anesthesia type and monitoring: general ETT and standard monitoring Results Review: All pre-operative results and documents have been reviewed as part of the pre-operative evaluation. Informed Consent: The patient's anesthetic plan and its attendant risks and benefits were discussed with the patient/family/POA. Questions were solicited and answers provided to the satisfaction of the patient/family/POA.
[2023-01-22] MEDS: LIDO 1%/EPINEPHRINE 1:100,000 20 ML VIAL 15 ML INFILTRATE (10:03)
--- NOTE | 2023-01-22 10:15 | P.OP_ITS ---
Procedure Note - Detailed Date of Procedure 01/22/23 Pre-op Diagnosis Desires Sterilization Post-op Diagnosis Same Procedure Performed Laparoscopic bilateral salpingectomy Surgeon Katie Bañuelos MD [employer] Agent [facility]eshawn Anesthesia General and Local (16cc of 1% lidocaine with epinephrine) Findings Uterus sounded to 9cm; normal cervix. Normal bilateral fallopian tubes and ovaries. Good hemostasis at end of case. Description of Procedure Nicolette was taken to the operating room where she was placed under general endotracheal anesthesia without complications. She was then prepped and draped in the usual sterile fashion in the dorsal lithotomy position with her legs in low He stirrups and her arms tucked at her side with a strap over her chest. A time-out was performed and no preoperative antibiotics were indicated. My attention was turned down below where her bladder was drained via straight catheterization. A bivalve speculum was then placed within the vagina where the cervix was easily identified. The anterior lip of the cervix was grasped with a single-tooth tenaculum, the uterus was sounded, and a diagnostic uterine manipulator was placed without complications. My gloves were changed and my attention was turned to her abdomen. An umbilical incision was made, and a 5 mm trocar was placed under direct visualization without complications. Once intra- abdominal placement was confirmed the abdomen was insufflated with carbon dioxide gas. She was then placed in Trendelenburg and two additional 5 mm ports were placed in the left and right lower quadrants under direct visualization without complications. The above findings were noted. The left fallopian tube was then elevated and the mesosalpinx was serially clamped, coagulated, and transected using the LigaSure device until the proximal end of the fallopian t ube was reached. The proximal end of the fallopian tube was cross clamped, coagulated, and transected. The tube was then removed from the abdomen. The same procedure was then performed on the right side without any complications. Good hemostasis was noted. All instruments were removed from the abdomen. The insufflation was released and the trocars were removed. The 3 laparoscopic incision sites were reapproximated using 4-0 Monocryl and covered with Dermabond. The incisions were then infiltrated using 1% Lidocaine with epinephrine. The uterine manipulator was removed. Sponge, lap, instrument, and needle counts were correct at the end of the procedure. Patient was awoken from general anesthesia and taken to recovery with plans of same-day discharge home. Estimated Blood Loss 5 IV Fluids 1,000 Urine Output 100 Pathology Yes (left and right fallopian tubes) Complications No immediate complications Condition Stable Disposition Same day [facility] Billing Surgery - Charge Forward: Surgery Billing
--- NOTE | 2023-01-22 10:51 | SUR.PHASEI ---
1050: Simple mask removed.
[2023-01-22] MEDS: oxyCODONE HCL (*CRX) 5 MG TAB IR PO (12:02)
== END 2023-01-22 12:40 | disposition home or self-care (01) ==
PROVIDERS: Visit Provider Obstetrics & Gynecology
PROC: (CPT 49320; principal; 2023-01-22 10:00)
DX: Z30.2 Encounter for sterilization (principal); N83.8 Other noninflammatory disorders of ovary, fallopian tube and broad ligament; I10 Essential (primary) hypertension; E66.9 Obesity, unspecified; Z68.35 Body mass index [BMI] 35.0-35.9, adult
CPT/HCPCS: 58661; 88302; A9270; J1100; J1885; J2250; J2405; J2704; J3010; J7120